=== PATIENT | male | born 1995 | race African-American/Black ===

== ENCOUNTER 2018-09-21 18:17 | Emergency (ER) | payer OTHER ==
[2018-09-21 18:32] VITALS: BP 142/99; PULSE 83; TEMP 97.9; BMI 28.0
--- NOTE | 2018-09-21 18:34 | PDOC ---
Rapid Medical Evaluation Chief Complaint: Respiratory Time Seen by Provider: 09/21/18 18:28 Medical Evaluation: 09/21/18 18:28 I have performed a brief in-person evaluation of this patient. The patient presents with a chief complaint of: was walking home , up hill and had acute onset of SOB. No palp, diaphoresis, No cough, fevers/ no recent URI. No hx of same. STate still haqs some SOB. Pertinent physical exam findings: Clear, no wheezing , talks in full sentences, I have ordered the following: CXR The patient will proceed to the ED for further evaluation
--- NOTE | 2018-09-21 18:47 | PDOC ---
History of Present Illness - General Chief Complaint: Shortness of Breath Stated Complaint: Shortness of Breath Time Seen by Provider: 09/21/18 18:28 - History of Present Illness Initial Comments: 09/21/18 18:45 22-year-old male without comorbidities presents for evaluation of shortness of breath. He [place] became short of breath when his car for about 20 minutes and was still short of breath this symptoms have now resolved he has no other associated symptoms. Past History - Past Medical History Allergies/Adverse Reactions: Allergies Allergy/AdvReac Type Severity Reaction Status Date / Time No Known Allergies Allergy Verified 09/21/18 18:29 Home Medications: Ambulatory Orders NK [No Known Home Medication] 09/21/18 - Suicide/Smoking/Psychosocial Hx Smoking History: Current some day smoker Information on smoking cessation initiated: No Review of Systems - Review of Systems Respiratory: Yes: Shortness of Breath *Physical Exam - Vital Signs Last Vital Signs Temp Pulse Resp BP Pulse Ox 97.9 F 83 18 142/99 99 09/21/18 18:29 09/21/18 18:29 09/21/18 18:29 09/21/18 18:29 09/21/18 18:29 - Physical Exam Comments: 09/21/18 18:45 HEAD: NC/AT EYES: Conjuntiva clear Ears: Canals and TM's normal NOSE: No d/c THROAT: Moist mucous membrances, oral pharanx clear, uvula midline NECK: Supple without adenopathy CARDIAC: S1 S2 LUNGS: CTA Full and Equal breath sounds ABDOMEN: Soft NT ND MS: Full ROM in all joints without edema NEUROLOGIC: No gross sensory or motor deficits, NVID SKIN: Normal color and temperature no lesions or rashes Medical Decision Making - Medical Decision Making Chest x-ray normal, patient stable not conversationally dyspneic no shortness of breath now follow-up with his primary care physician with instructions to return to the emergency room should symptoms come back 09/21/18 18:45 *DC/Admit/Observation/Transfer Diagnosis at time of Disposition: Shortness of breath - Discharge Dispostion Disposition: HOME Condition at time of disposition: Stable Decision to Admit order: No - Referrals Referrals: Bridget Toth MD [Staff Physician] - Toby Atwood MD [Non Staff, Medical] - Mati Hill MD [Non Staff, Medical] - Apolinar George MD [Non Staff, Medical] - Mati Romero MD [Non Staff, Medical] - Magaly Morgan MD [Non Staff, Medical] - - Patient Instructions Printed Discharge Instructions: DI for Shortness of Breath, How to Manage Shortness of Breath Additional Instructions: Return to the emergency room should symptoms return otherwise follow-up with her primary care physician once 2 days for further evaluation and treatment options. No treatment is necessary at this time. - Post Discharge Activity
== END 2018-09-21 18:57 | disposition home or self-care (01) ==
LOC: JERFT 18:17
DX: R06.02 Shortness of breath (principal); F17.210 Nicotine dependence, cigarettes, uncomplicated
CPT/HCPCS: 71046-TC-FY; 99281-25